=== PATIENT | male | born 1950 | race Caucasian/White ===

== ENCOUNTER 2024-03-07 17:44 | Emergency (ER) | payer MEDICARE, SELFPAY ==
[2024-03-07 18:11] VITALS: BP 153/56; PULSE 68; RESP 20; TEMP 36.6; O2SAT 95; BMI 37.6
--- NOTE | 2024-03-07 18:23 | ED_ITS ---
Discharge Plan Disposition Patient Disposition: Still a Patient Prescriptions Prescriptions: No Action gabapentin 600 mg tablet 600 mg PO DAILY glipizide 10 mg tablet 10 mg PO DAILY Patient Comments: TAKE 1 TABLET BY MOUTH ONCE DAILY. isosorbide mononitrate 30 mg tablet extended release 24 hr 30 mg PO DAILY glipizide 5 mg tablet extended release 24hr 5 mg PO DAILY trazodone 100 mg tablet 100 mg PO DAILY amitriptyline 10 mg tablet 10 mg PO DAILY Patient Comments: TAKE 1 TABLET BY MOUTH 2 TIMES DAILY FOR 90 DAYS. losartan 25 mg tablet 25 mg PO DAILY Patient Comments: TAKE 1/2 TABLET BY MOUTH ONCE DAILY. metoprolol succinate 25 mg tablet extended release 24 hr 25 mg PO DAILY duloxetine 30 mg capsule,delayed release(DR/EC) 30 mg PO DAILY fenofibrate nanocrystallized 48 mg tablet 48 mg PO DAILY Referrals Follow up/Referrals: Provider,Referral, MD [Primary Care Provider] - See instructions Print Language Print Language: Slovenian Discharge ED Provider: Mauricio Reid [facility] [place] HPI General Stated complaint: Stepped on nail 6 mos ago not healing Mode of Arrival: Ambulatory Source of Information: Patient Time Seen by Provider: 03/07/24 18:15 Description of Symptoms (Recalled from Triage Doc. by RN): HOLE IN RIGHT FOOT FROM NAIL 4 MONTHS AGO HEENT Symptoms (Recalled from RN notes): No Resp Symptoms (Recalled from RN notes): No Skin Symptoms (Recalled from RN notes): Yes MS Symptoms (Recalled from RN notes): No Functional Status (Recalled from RN notes): WNL History of Present Illness Provider Complaint: Patient states that he is a diabetic and has neuropathy in both feet States about 4-6 mths ago he had on crocs and stepped on a nail with his right foot but did not know it until his asked him if he was bleeding and when he pulled his shoe off he noticed the nail in his shoe States he has seen his PCP and they sent him to Podiatry at [facility] and they give him some cream for it states he has been using it and he is almost out but wasnt getting any better and has a hole in the bottom of his foot still and for the last month the wound has been having drainage and noticed it onto his sock unsure of the color of drainage because he has black socks, but noticed it had a foul smell to it States he talked to family friend and they told him to come here so tonight when it was still not getting any better and still having foul smelling drainage he came in Related Data Home Medications ?Medication ?Instructions ?Recorded ?Confirmed amitriptyline 10 mg tablet 10 mg PO DAILY 03/07/24 03/07/24 duloxetine 30 mg capsule,delayed 30 mg PO DAILY 03/07/24 03/07/24 release fenofibrate nanocrystallized 48 mg 48 mg PO DAILY 03/07/24 03/07/24 tablet gabapentin 600 mg tablet 600 mg PO DAILY 03/07/24 03/07/24 glipizide 10 mg tablet 10 mg PO DAILY 03/07/24 03/07/24 glipizide 5 mg tablet, extended 5 mg PO DAILY 03/07/24 03/07/24 release 24 hr isosorbide mononitrate 30 mg 30 mg PO DAILY 03/07/24 03/07/24 tablet,extended release 24 hr losartan 25 mg tablet 25 mg PO DAILY 03/07/24 03/07/24 metoprolol succinate 25 mg 25 mg PO DAILY 03/07/24 03/07/24 tablet,extended release 24 hr trazodone 100 mg tablet 100 mg PO DAILY 03/07/24 03/07/24 Allergies Allergy/AdvReac Type Severity Reaction Status Date / Time No Known Allergies Allergy Verified 03/07/24 18:13 Worker's Comp Is this a Worker's Comp case?: No [facility] Disclaimer: The information contained in this section may have been updated after the patient was seen, as this information can be updated by other users. Medical History (Updated 03/07/24 @ 18:19 by Stormy Mckeon RN) Depression Diabetes mellitus Heart attack Hyperlipidemia Surgical History (Updated 03/07/24 @ 18:19 by Stormy Mckeon RN) History of open heart surgery H/O right heart catheterization Social History Smoking Status: Unknown if ever smoked alcohol intake: never current occupational status: disabled Travel in the last 8 weeks: None ROS Obtained: Yes All systems reviewed & no additional complaints except as documented and Yes Systems reviewed as appropriate & no additional complaints except as documented Constitutional Constitutional: Reports system reviewed and no additional complaints, except as documented, Reports as per HPI, Denies body ache, Denies chills and Denies fever(s) ENT Ears, Nose, Mouth, and Throat: Reports system reviewed and no additional complaints, except as documented and Reports as per HPI Cardiovascular Cardiovascular: Reports system reviewed and no additional complaints, except as documented and Reports as per HPI Respiratory Respiratory: Reports system reviewed and no additional complaints, except as documented and Reports as per HPI Gastrointestinal Gastrointestingal: Reports system reviewed and no additional complaints, except as documented and as per HPI Integumentary/Breasts Skin/Breast: Reports system reviewed and no additional complaints, except as documented, Reports as per HPI and Reports other Comments: open wound to bottom of right foot that is not healing since stepping on a nail 4-6ths ago and for last month has had foul smelling drainage Physical Exam General General appearance: alert and in no apparent distress ENT ENT exam: Present mucous membranes moist Respiratory Respiratory exam: Present normal lung sounds bilaterally; Absent respiratory distress or wheezes Cardiovascular Cardiovascular exam: Present regular rate, normal rhythm and normal heart sounds Expanded Lower Extremity Exam Right: Foot/toe exam: Present puncture wound Bottom foot image: 2 1. patient is diabetic, open wound noted, callused edges with foul odor from wound from stepping on nail 4-6mths ago and has not healed Neurological Exam Neurological exam: Present alert, oriented X3 and normal gait Medical Decision Making Medical Records Screening: Per USPSTF and CDC recommendations, given the prevalence of disease in our region, it is our hospital?s policy to screen for HIV and viral Hepatitis for all patients aged 18 and over and those with ongoing risk factors. Bertrand Inquiry Pt receiving controlled substance: No Bertrand was queried for this patient: No Vital Signs: 03/07/24 18:11 Temperature 97.9 F Temperature Source Oral Pulse Rate [Left Radial] 68 Respiratory Rate 20 Blood Pressure [Left Arm] 153/56 H Blood Pressure Mean [Left Arm] 88 02 Sat by Pulse Oximetry 95 Medical Decision Narrative: Patient is a diabetic and states he stepped on nail 4-6mths ago and wound not healing, having drainage and foul odor, Due to patient having hx of diabetes with neuropathy and nonhealing wound on right foot with drainage and foul odor for 4-6mths will transfer patient to the ED for further work up and evaluation, patient agreed with transfer awaiting room assignment in the ED
[2024-03-07 19:31] VITALS: BP 172/76; PULSE 69; RESP 18; TEMP 36.8; O2SAT 95; BMI 37.5
--- NOTE | 2024-03-07 19:33 | CT_ITS ---
PROCEDURE INFORMATION: Exam: CT Right Lower Extremity, Foot Exam date and time: 03/07/2024 8:11 PM Age: 73 years old Clinical indication: Injury or trauma; Other: Stepped on nail 5/6 months ago; Other: Pain; Additional info: Infected R plantar foot TECHNIQUE: Imaging protocol: CT of the right lower extremity with intravenous contrast was performed. Exam focused on the foot. Radiation optimization: All CT scans at this facility use at least one of these dose optimization techniques: automated exposure control; mA and/or kV adjustment per patient size (includes targeted exams where dose is matched to clinical indication); or iterative reconstruction. Contrast material: ISOVUE; Contrast volume: 120 ml; Contrast route: IV; COMPARISON: No relevant prior studies available. FINDINGS: Bones/joints: Chronic 5th metatarsal ORIF. No acute fracture or dislocation. Soft tissues: Subcutaneous laceration and edema along plantar aspect mid/forefoot. No radiopaque foreign body. Small non drainable fluid collection along wound. No air. IMPRESSION: 1. Plantar subcutaneous laceration and edema with small non drainable fluid collection along moved. No radiopaque foreign body identified. 2. No acute osseous findings identified.
[2024-03-07 19:42] LABS: Basophils # 0.1 K/mm3 (0-0.2); Eosinophils # 0.2 K/mm3 (0.0-0.4); Eosinophils % 2.6 % (0.1-12.0); Hematocrit 42.7 % (42.0-52.0); Hemoglobin 14.2 g/dL (14.1-18.0); Lymphocytes % 34.6 % (10-50); Mean Corpuscular HGB Conc 33.2 g/dL (31.8-35.4); Mean Corpuscular Volume 81.3 fl (80-94); Mean Platelet Volume 8.2 fl (7.4-10.4); Monocytes # 0.4 K/mm3 (0.1-1.0); Neutrophils # 3.3 K/mm3 (1.8-7.8); Neutrophils % 55.9 % (37.0-80.0); Platelet Count 185 K/mm3 (142-424); Red Blood Count 5.25 M/mm3 (4.60-6.20); Red Cell Distribution Width 14.4 % (11.5-17.5); White Blood Count 5.8 K/mm3 (4.8-10.8)
[2024-03-07 19:43] LABS: Albumin Level 4.2 g/dl (3.5-5.0); Chloride 104 mmol/L (98-107); Potassium 4.5 mmoL/L (3.5-5.1); Sodium 139 mmol/L (136-145)
[2024-03-07 19:46] LABS: Alanine Aminotransferase 26 U/L (12-78); Albumin/Globulin Ratio 1.3 (1.1-1.8); Alkaline Phosphatase 58 U/L (38-126); Anion Gap 11.5 mEq/L (5-15); Aspartate Amino Transferase 34 U/L (17-59); Bilirubin,Total 0.5 mg/dl (0.2-1.3); Blood Urea Nitrogen 20 mg/dl (9-20); Carbon Dioxide 28 mmol/L (22.0-30.0); Creatinine Clearance Estimated 95 mL/min (50-200); Estimated Glomerular Filt Rate 54 ml/min (>60); GFR (African American) 66 ML/MIN (>60); Globulin 3.3 g/dL (1.3-3.2); Glucose 237 mg/dl (74-100); Total Protein,Serum 7.5 g/dl (6.3-8.2)
[2024-03-07 19:52] LABS: C-Reactive Protein 5.1 mg/L (0-4)
[2024-03-07 20:09] LABS: Hemoglobin A1C 9.8 % (4.0-6.0)
[2024-03-07] MEDS: IOPAMIDOL-370 (76%);100ML BOTTLE 120 ML IV (20:11)
[2024-03-07] MEDS: 0.9 % SODIUM CHLORIDE 50 ML VIAL IV (20:11)
[2024-03-07] MEDS: SODIUM CHLORIDE 0.9% 10ML SYR (RAD ONLY) 10 ML IV (20:11)
--- NOTE | 2024-03-07 20:32 | [facility].EDGENADL ---
Discharge Plan Disposition Patient Disposition: Home, Self-Care Prescriptions Prescriptions: New sulfamethoxazole-trimethoprim [Bactrim DS] 800-160 mg tablet 1 tab PO BID 10 Days Qty: 20 0RF No Action gabapentin 600 mg tablet 600 mg PO DAILY glipizide 10 mg tablet 10 mg PO DAILY Patient Comments: TAKE 1 TABLET BY MOUTH ONCE DAILY. isosorbide mononitrate 30 mg tablet extended release 24 hr 30 mg PO DAILY glipizide 5 mg tablet extended release 24hr 5 mg PO DAILY trazodone 100 mg tablet 100 mg PO DAILY amitriptyline 10 mg tablet 10 mg PO DAILY Patient Comments: TAKE 1 TABLET BY MOUTH 2 TIMES DAILY FOR 90 DAYS. losartan 25 mg tablet 25 mg PO DAILY Patient Comments: TAKE 1/2 TABLET BY MOUTH ONCE DAILY. metoprolol succinate 25 mg tablet extended release 24 hr 25 mg PO DAILY duloxetine 30 mg capsule,delayed release(DR/EC) 30 mg PO DAILY fenofibrate nanocrystallized 48 mg tablet 48 mg PO DAILY Referrals Follow up/Referrals: Provider,Referral, MD [Primary Care Provider] - See instructions Swapna Coronado DPM [Staff Physician] - See instructions Activity Restrictions/Add. Instructions Additional Instructions/Restrictions: At this time it was felt you are safe to be discharged home. If new or worsening symptoms please do not hesitate to return the emergency department. Please call and schedule appoint with Dr. Coronado tomorrow. Tell them Dr. Reid spoke with Dr. Coronado and she wants you seen first thing this coming week if possible. Please take antibiotics as prescribed. Clinical Impressions Clinical Impression: Diabetic ulcer of foot with fat layer exposed Print Language Print Language: Pashto Discharge ED Provider: Mauricio Reid General Adult HPI General Chief complaint: Extremity Injury, Lower Stated complaint: Stepped on nail 6 mos ago not healing Time Seen by Provider: 03/07/24 18:15 Mode of Arrival: Wheelchair Source of Information: Patient Limitations: No Limitations Description of Symptoms (Recalled from ER Triage Doc. by RN): Pt reports to ED with cc of left foot pain. Pt states approx 5 to 6 months ago he stepped on a nail. Pt states having a hx of diabetes and neuropathy in both feet. Pt states the seeing a foot doctor who prescribed him a cream for his foot. Pt describes the pain as an 8/10 with buring. Pt has a small opening in left foot. History of Present Illness HPI narrative: Patient is a 73-year-old insulin-dependent diabetic with past medical history of hypertension hyperlipidemia who presents to the emergency department for evaluation of infected foot wound. For the last 5 or 6 months after he stepped on a nail he has had a foot wound with associated pain on his plantar right foot that is gotten progressively worse with insidious dull achy pain and drainage from the foot. He previously saw a chest however was lost to follow-up. No other acute complaints at this time. No new trauma. Related Data Home Medications ?Medication ?Instructions ?Recorded ?Confirmed amitriptyline 10 mg tablet 10 mg PO DAILY 03/07/24 03/07/24 duloxetine 30 mg capsule,delayed 30 mg PO DAILY 03/07/24 03/07/24 release fenofibrate nanocrystallized 48 mg 48 mg PO DAILY 03/07/24 03/07/24 tablet gabapentin 600 mg tablet 600 mg PO DAILY 03/07/24 03/07/24 glipizide 10 mg tablet 10 mg PO DAILY 03/07/24 03/07/24 glipizide 5 mg tablet, extended 5 mg PO DAILY 03/07/24 03/07/24 release 24 hr isosorbide mononitrate 30 mg 30 mg PO DAILY 03/07/24 03/07/24 tablet,extended release 24 hr losartan 25 mg tablet 25 mg PO DAILY 03/07/24 03/07/24 metoprolol succinate 25 mg 25 mg PO DAILY 03/07/24 03/07/24 tablet,extended release 24 hr trazodone 100 mg tablet 100 mg PO DAILY 03/07/24 03/07/24 Previous Rx's ?Medication ?Instructions ?Recorded sulfamethoxazole 800 1 tab PO BID Diabetic ulcer 10 03/07/24 mg-trimethoprim 160 mg tablet days #20 tabs (Bactrim DS) Allergies Allergy/AdvReac Type Severity Reaction Status Date / Time No Known Allergies Allergy Verified 03/07/24 18:13 [facility] Disclaimer: The information contained in this section may have been updated after the patient was seen, as this information can be updated by other users. Medical History (Updated 03/07/24 @ 21:25 by Mauricio Reid MD) Depression Diabetes mellitus Heart attack Hyperlipidemia Surgical History (Updated 03/07/24 @ 18:19 by Stormy Mckeon RN) History of open heart surgery H/O right heart catheterization Social History (Updated 03/07/24 @ 19:19 by Sharon Musa APRN) Smoking Status: Never smoker alcohol intake: never current occupational status: disabled Travel in the last 8 weeks: None ROS Obtained: Yes Systems reviewed as appropriate & no additional complaints except as documented Physical Exam General General appearance: alert and in no apparent distress Head Head exam: atraumatic and normocephalic Eye Eye exam: Present PERRL and EOMI ENT ENT exam: Present mucous membranes moist Neck Neck exam: Present normal inspection Chest Chest inspection: Present normal inspection and symmetric chest wall rise Respiratory Respiratory exam: Absent respiratory distress Cardiovascular Cardiovascular exam: Present regular rate and normal rhythm Abdominal Exam Abdominal exam: Present soft; Absent tenderness Extremities Exam Extremities exam: Present other (Palpable dorsal pedal pulse on the right, there is a tunneling 1 cm wound over the plantar aspect of his right foot proximal to his metatarsophalangeal joint. Mild edema. Distal capillary refill all toes preserved. Decreased sensation to light touch bilateral feet.) Neurological Exam Neurological exam: Present alert Psychiatric Psychiatric exam: Present normal affect Skin Skin exam: Present warm and dry Medical Decision Making Medical Records Screening: Per USPSTF and CDC recommendations, given the prevalence of disease in our region, it is our hospital?s policy to screen for HIV and viral Hepatitis for all patients aged 18 and over and those with ongoing risk factors. Bertrand Inquiry Pt receiving controlled substance: No Vital Signs: 03/07/24 18:11 03/07/24 19:31 03/07/24 21:27 Temperature 97.9 F 98.3 F 97.9 F Temperature Source Oral Oral Oral Pulse Rate 72 Pulse Rate [Left Radial] 68 69 Respiratory Rate 20 18 16 Blood Pressure 160/86 H Blood Pressure [Left Arm] 153/56 H 172/76 H Blood Pressure Mean [Left Arm] 88 108 Blood Pressure Source [Left Arm] Automatic Cuff Blood Pressure Position [Left Arm] Sitting 02 Sat by Pulse Oximetry 95 95 Oxygen Delivery Method Room Air Room Air Lab Data Lab Results 03/07/24 19:18: WBC 5.8, RBC 5.25, Hgb 14.2, Hct 42.7, MCV 81.3, MCH 27.0, MCHC 33.2, RDW 14.4, Plt Count 185, MPV 8.2, Neut % (Auto) 55.9, Lymph % (Auto) 34.6, Haywood % (Auto) 6.0, Eos % (Auto) 2.6, Baso % (Auto) 1.0, Neut # (Auto) 3.3, Lymph # (Auto) 2.0, [place]wood # (Auto) 0.4, Eos # (Auto) 0.2, Baso # (Auto) 0.1, Sodium 139, Potassium 4.5, Chloride 104, Carbon Dioxide 28, Anion Gap 11.5, BUN 20, Creatinine 1.30 H, Estimated Creat Clear 95, Estimated GFR 54 L, Est GFR ( Amer) 66, Glucose 237 H, Hemoglobin A1c 9.8 H, Calcium 9.0, Total Bilirubin 0.5, AST 34, ALT 26, Alkaline Phosphatase 58, C-Reactive Protein 5.1 H, Total Protein 7.5, Albumin 4.2, Globulin 3.3 H, Albumin/Globulin Ratio 1.3, HIV 1&2 Antibody Rapid Nonreactive 03/07/24 19:18 03/07/24 19:18 Orders (Tests/Meds): ED MEDICATIONS Generic Name Dose Route Start Last Admin Trade Name Freq PRN Reason Stop Dose Admin Sodium Chloride 10 ml 03/07/24 20:10 03/07/24 20:11 Sodium Chloride 0.9% 10ml Syr (Rad Only) IV 04/06/24 20:09 10 ml NEEDED PRN Administration Maintain IV Site Trimethoprim/Sulfamethoxazole 1 each 03/07/24 21:24 Sulfa/Trimethoprim 1 Tablet PO 03/07/24 21:25 ONCE ONE Discontinued Medications Generic Name Dose Route Start Last Admin Trade Name Freq PRN Reason Stop Dose Admin Iopamidol 120 ml 03/07/24 20:10 03/07/24 20:11 Iopamidol-370 (76%);100ml Bottle IV 03/07/24 20:11 120 ml ONCE ONE Administration Sodium Chloride 50 ml 03/07/24 20:10 03/07/24 20:11 0.9 % Sodium Chloride 50 Ml Vial IV 03/07/24 20:11 50 ml ONCE ONE Administration ORDERS Category Date Time Status CT foot RT w con Stat Cat Scan 03/07/24 19:33 Completed CBC w/Auto Diff [Complete Blood Count Auto Diff] Stat Lab 03/07/24 19:18 Results CMP [Comprehensive Metabolic Panel] Stat Lab 03/07/24 19:18 Completed CRP [C-Reactive Protein] Stat Lab 03/07/24 19:18 Completed ESR [Erythrocyte Sedimentation Rate] Stat Lab 03/07/24 19:18 Results HIV (1&2) Antibody Rapid Stat Lab 03/07/24 19:18 Completed Hemoglobin A1C Stat Lab 03/07/24 19:18 Completed Hep C Ab with Reflex to RNA Stat Lab 03/07/24 19:18 Received Medical Decision Narrative: In summary patient is a 73-year-old male with past medical history described above who presents emergency department for evaluation of traumatic foot wound in the setting of diabetes. Patient is hemodynamically stable and nontoxic-appearing upon arrival, afebrile. I have high concern for osteomyelitis given the smoldering chronicity of this with inoculation and the history in the setting of diabetes. Differential also includes necrotizing soft tissue infection, among others. Workup we conducted with hematologic labs, CT foot with IV contrast. Initial workup reviewed by me, no significant leukocytosis, creatinine 1.3 with unknown baseline without critical electrolyte abnormality, glucose elevated without elevated anion gap, A1c 9.8, mildly elevated CRP. CT foot shows no osseous findings, plantar subcutaneous wound with edema and nondrainable fluid collection along the wound without foreign body. Patient clinically has an infected diabetic ulcer and will undergo treatment with Bactrim and will follow-up with Dr. Coronado on an outpatient basis early next week. Critical Care Critical Care Time Critical Care Time: No
[2024-03-07 21:19] LABS: HIV (1&2) Antibody Rapid NONREACTIVE (NONREACTIVE)
[2024-03-07 21:27] VITALS: BP 160/86; PULSE 72; RESP 16; TEMP 36.6; O2SAT 96
[2024-03-07] MEDS: SULFA/TRIMETHOPRIM 1 TABLET 1 EACH PO (21:30)
[2024-03-07 22:03] LABS: Erythrocyte Sedimentation Rate 18 mm/hr (0-20)
[2024-03-09 05:11] LABS: HCV Ab Non Reactive (Non Reactive)
== END 2024-03-07 21:36 | disposition home or self-care (01) ==
LOC: UTC 18:39 → ER 19:10
PROVIDERS: Emergency Provider Emergency Medicine
DX: E11.621 Type 2 diabetes mellitus with foot ulcer (principal); M79.671 Pain in right foot
CPT/HCPCS: 73701; 80053; 83036; 85025; 85651; 86140; 86803; 87389; 99285; Q9967